=== PATIENT | female | born 1945 | race Caucasian/White ===

== ENCOUNTER 2016-09-10 21:03 | Emergency (ER) | payer MEDICARE ==
[2016-09-10] MEDS ORDERED: MORPHINE 2 MG/ML SYRINGE IVP STA ×2 (21:45→22:31)
[2016-09-10] MEDS ORDERED: ONDANSETRON 4 MG/2 ML VIAL IVP STA (21:45)
[2016-09-10] MEDS ORDERED: ONDANSETRON 4 MG/2 ML VIAL ONE (21:47)
[2016-09-10] MEDS ORDERED: MORPHINE 2 MG/ML SYRINGE ONE ×2 (21:48→22:35)
[2016-09-10] MEDS ORDERED: IOPAMIDOL-300 100 ML VIAL IVP ONE (22:23)
[2016-09-10] MEDS ORDERED: SODIUM CHLORIDE 0.9% 1,000 ML IV ONE (22:28)
[2016-09-10] MEDS ORDERED: KETOROLAC 60 MG/2 ML VIAL IVP STA (23:26)
[2016-09-10] MEDS ORDERED: KETOROLAC 30 MG/ML VIAL ONE (23:27)
[2016-09-11] MEDS ORDERED: MORPHINE 10 MG/ML VIAL IVP STA (01:40)
[2016-09-11] MEDS ORDERED: MORPHINE 2 MG/ML SYRINGE ONE (01:44)
== END 2016-09-11 02:05 | disposition home or self-care (01) ==
DX: R19.09 Other intra-abdominal and pelvic swelling, mass and lump (principal); R10.813 Right lower quadrant abdominal tenderness; I10 Essential (primary) hypertension; Z79.82 Long term (current) use of aspirin; Z90.710 Acquired absence of both cervix and uterus
CPT/HCPCS: 36415; 74177; 76830; 76856; 80053; 81001; 83690; 85025; 87086; 93976; 96374; 96375; 96376; 99284; 99285; Q9967

== ENCOUNTER 2017-07-02 09:11 | Outpatient (CLI) | payer MEDICARE | END 2017-07-02 09:12 | disposition home or self-care (01) | LOC: RT 09:11 | PROVIDERS: ATTEND Internal Medicine | DX: F17.200 Nicotine dependence, unspecified, uncomplicated (principal) | CPT/HCPCS: 94010; 94729 ==

== ENCOUNTER 2017-10-18 16:08 | Outpatient (CLI) | payer MEDICARE ==
--- NOTE | 2017-10-19 13:17 | XRAY Report ---
THORACIC SPINE, TWO VIEWS: 10/18/2017 HISTORY: Back pain. COMPARISON: 06/10/2012 chest x-ray. FINDINGS: Increasing mid-thoracic dextroscoliosis, accentuated thoracic kyphosis with mild degenerative disk space narrowing at multiple levels. No definite compression fracture or bone destruction. Included portions of the lungs are clear. Heart appears enlarged in size. IMPRESSION: DEGENERATIVE CHANGE THORACIC SPINE WITH INCREASING THORACIC DEXTROSCOLIOSIS SINCE 06/10/2012. TD: 10/19/2017 13:07
== END 2017-10-18 16:09 | disposition home or self-care (01) ==
LOC: DI.S 16:08
PROVIDERS: ATTEND Internal Medicine
DX: M41.84 Other forms of scoliosis, thoracic region (principal); M51.34 Other intervertebral disc degeneration, thoracic region
CPT/HCPCS: 72070

== ENCOUNTER 2017-12-01 13:54 | Outpatient (CLI) | payer MEDICARE ==
--- NOTE | 2017-12-01 14:47 | XRAY Report ---
Procedure Date: 12/01/2017 Accession Number: [id number] / [id number] Procedure: XRS - Hip w/Pelvis 2-3V RT CPT Code: FULL RESULT: EXAM: Hip w/Pelvis 2-3V RT DATE: 12/01/2017 2:07 PM CLINICAL HISTORY: R HIP PAIN COMPARISON: None. TECHNIQUE: 1 view of the pelvis and 1 view of the hip. FINDINGS: Bones: Normal. No fracture or bone lesion. Joints: There is near complete loss of the femoral acetabular joint spaces bilaterally. Sacroiliac joints remain congruent. Visualized lumbar spine is unremarkable. Soft Tissues: Normal. No soft tissue swelling. IMPRESSION: Advanced femoral acetabular joint space loss. RADIA
== END 2017-12-01 13:55 | disposition home or self-care (01) ==
LOC: DI.S 13:54
PROVIDERS: ATTEND Internal Medicine
DX: M16.11 Unilateral primary osteoarthritis, right hip (principal)

== ENCOUNTER 2018-02-17 07:52 | Outpatient (CLI) | payer MEDICARE ==
[2018-02-17 11:02] LABS: % IRON SATURATION 23 % (20-50); IRON 82 ug/dL (28-170); THYROID STIMULATING HORMONE 2.24 uIU/mL (0.34-5.60); TOTAL IRON BINDING CAPACITY 360 ug/dL (250-450); TRANSFERRIN 257 mg/dL (192-382)
[2018-02-17 11:04] LABS: FREE T4 (FREE THYROXINE) 0.77 ng/dL (0.58-1.64)
== END 2018-02-17 07:53 | disposition home or self-care (01) ==
LOC: LAB.F 07:52
PROVIDERS: ATTEND Internal Medicine
DX: I10 Essential (primary) hypertension (principal); E03.9 Hypothyroidism, unspecified; L81.9 Disorder of pigmentation, unspecified; L65.9 Nonscarring hair loss, unspecified
CPT/HCPCS: 36415; 83540; 84439; 84443; 84466; 84481

== ENCOUNTER 2018-08-15 08:14 | Emergency (ER) | payer MEDICARE ==
--- NOTE | 2018-08-15 10:03 | XRAY Report ---
Reason: distal 5th MC injury Procedure Date: 08/15/2018 Accession Number: [id number] / [id number] Procedure: XR - Hand 3 View RT CPT Code: FULL RESULT: EXAM: RIGHT HAND RADIOGRAPHY EXAM DATE: 08/15/2018 09:34 AM. CLINICAL HISTORY: Distal 5th MC injury. Pain and swelling COMPARISON: None. TECHNIQUE: 3 views. FINDINGS: Bones: Oblique nondisplaced right fifth metacarpal midshaft fracture Joints: Scattered degenerative changes No subluxations. Soft Tissues: Mild soft tissue swelling. IMPRESSION: Right fifth metacarpal fracture RADIA
--- NOTE | 2018-08-15 10:09 | ED Physician Documentation ---
PD HPI UPPER EXT INJURY - Stated complaint Stated Complaint: LEFT FINGER INJ - Chief complaint Chief Complaint: Trauma Ext - History obtained from History obtained from: Patient - History of Present Illness Location: Right, Hand Type of injury: Fall Where injury occurred: Home Timing - onset: Enter time (2029), Last night Timing - duration: Hours Timing - details: Abrupt onset, Still present Improved by: Rest, Immobilization Worsened by: Moving, Palpating Associated symptoms: Swelling, Discolored. No: Weakness, Numbness Contributing factors: No: Anticoagulated Similar symptoms before: Has not had sx before Recently seen: Not recently seen - Additonal information Additional information: 73-year-old female tripped and fell in her home striking her hand on a bedside table. She has swelling ecchymosis and tenderness to the area and pain anytime she moves her hand or finger. She is wearing some rings and her ring on the fifth digit will not come off now. Review of Systems Constitutional: denies: Fever Eyes: denies: Decreased vision Nose: denies: Congestion Throat: denies: Sore throat Respiratory: denies: Cough GI: denies: Vomiting PD PAST MEDICAL HISTORY - Past Medical History Past Medical History: Yes Cardiovascular: Hypertension Respiratory: None Neuro: None Endocrine/Autoimmune: None GI: Colon polyps OTOLOGIST: None : None HEENT: None Psych: None Musculoskeletal: None Derm: None - Past Surgical History Past Surgical History: Yes General: Colonoscopy Ortho: Arthroscopic surgery /OTOLOGIST: Hysterectomy, Oophrectomy - Present Medications Home Medications: Ambulatory Orders Medication Instructions Recorded Confirmed Atenolol [Tenormin] 100 mg PO 09/10/16 Hydrocodone/Acetaminophen 1 - 2 each PO Q6H PRN #14 tablet 08/15/18 [Hydrocodon-Acetaminophen 5-325] - Allergies Allergies/Adverse Reactions: Allergies Allergy/AdvReac Type Severity Reaction Status Date / Time codeine AdvReac Headache Verified 08/15/18 08:30 - Social History Does the pt smoke?: No Smoking Status: Never smoker Does the pt drink ETOH?: Yes ETOH Use: Wine, Liquor Does the pt have substance abuse?: No - Immunizations Immunizations are current?: Yes - POLST Patient has POLST: No PD ED PE NORMAL - Vitals Vital signs reviewed: Yes (hypertensive) - General General: Alert and oriented X 3, No acute distress, Well developed/nourished - HEENT HEENT: Atraumatic, PERRL, EOMI - Respiratory Respiratory: No respiratory distress - Derm Derm: Normal color, Warm and dry, No rash - Extremities Extremities: No deformity, Other (There is ecchymosis, swelling and tenderness to the right hand over the 5th metacarpal. The fingers are all mobile there is some swelling to the 5th digits and the ring is tight but moveable without obstruction to blood flow. distal n/v is intact. 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, No motor deficit, No sensory deficit, Normal speech Eye Opening: Spontaneous Motor: Obeys Commands Verbal: Oriented GCS Score: 15 - Psych Psych: Normal mood, Normal affect Results - Vitals Vitals: Vital Signs - 24 hr 08/15/18 08:28 Temperature 35.7 C L Heart Rate 60 Respiratory 14 Rate Blood Pressure 170/113 H O2 Saturation 100 Oxygen O2 Source Room air - Rads (name of study) right hand Radiology: Prelim report reviewed (Impression: Right fifth metacarpal fracture.), EMP read indepedently, See rad report Procedures - Splint (location) hand right Splint applied by: Tech Type of splint: Fiberglass, Ulnar gutter Other: Patient tolerated well, No complications, Neurovascular intact, Good alignment PD MEDICAL DECISION MAKING - ED course Complexity details: considered differential, d/w patient ED course: 73-year-old female with an injury to her right hand has a spiral fracture of the mid shaft of the metacarpal on the right hand on the fifth digit. She is placed into an ulnar gutter splint and we will have her follow-up with orthopedics. Departure - Departure Disposition: 01 Home, Self Care Clinical Impression: Closed fracture of 5th metacarpal Qualifiers: Encounter type: initial encounter Metacarpal location: shaft Fracture alignment: nondisplaced Laterality: right Qualified Code(s): S62.356A - Nondisplaced fracture of shaft of fifth metacarpal bone, right hand, initial encounter for closed fracture Condition: Stable Instructions: ED Fx Hand Closed Follow-Up: Tayler Lizarraga PA [Primary Care Provider] - [facility] [Provider Group] Prescriptions: Hydrocodone/Acetaminophen [Hydrocodon-Acetaminophen 5-325] 1 - 2 each PO Q6H PRN #14 tablet PRN Reason: pain
[2018-08-15 10:58] VITALS: BP 154/106
== END 2018-08-15 11:00 | disposition home or self-care (01) ==
LOC: ED 08:14
DX: S62.356A Nondisplaced fracture of shaft of fifth metacarpal bone, right hand, initial encounter for closed fracture (principal); W01.190A Fall on same level from slipping, tripping and stumbling with subsequent striking against furniture, initial encounter; Y92.009 Unspecified place in unspecified non-institutional (private) residence as the place of occurrence of the external cause; I10 Essential (primary) hypertension
CPT/HCPCS: 29515; 99283

== ENCOUNTER 2019-08-08 14:33 | Outpatient (CLI) | payer MEDICARE, OTHER | END 2019-08-08 14:34 | disposition home or self-care (01) | LOC: COV 14:33 | PROVIDERS: ATTEND Family Medicine | DX: R05 Cough (principal); R50.9 Fever, unspecified | CPT/HCPCS: 81599 ==

== ENCOUNTER 2020-03-29 16:39 | Outpatient (CLI) | payer MEDICARE, OTHER | END 2020-03-29 16:40 | disposition home or self-care (01) | LOC: COV 16:39 | PROVIDERS: ATTEND Family Medicine | DX: Z20.828 Contact with and (suspected) exposure to other viral communicable diseases (principal) ==

== ENCOUNTER 2020-06-24 10:41 | Outpatient (CLI) | payer MEDICARE, OTHER ==
--- NOTE | 2020-06-24 14:59 | DEXA Report ---
PROCEDURE: Dexa Spine and/or Hip INDICATIONS: OSTEOPOROSIS TECHNIQUE: Dual energy x-ray absorptiometry (DXA) was performed on a UGAME System. Regions measur ed are the AP Spine, femoral neck, and if needed forearm. COMPARISON: None. FINDINGS: Lumbar Spine: Bone Mineral Density 0.894 g/cm/cm,T score -2.4, borderline osteoporosis. Left Hip: Bone Mineral Density 0.752 g/cm/cm,T score -2.0, moderate to severe osteopenia Left Femoral Neck: Bone Mineral Density 0.727 g/cm/cm, T score -2.2, severe osteopenia (T score greater or equal to -1.0: NORMAL) (T score from -1.1 to -2.4: OSTEOPENIA) (T score less than or equal to -2.5 to: OSTEOPOROSIS) Impression: Borderline osteoporosis within the lumbar spine as well as moderate to severe osteopenia in the left hip and femoral neck. Patients with diagnosis of osteoporosis or osteopenia should have regular bone mineral density assess ment. For those eligible for Medicare, routine testing is allowed once every 2 years. Testing frequ ency can be increased for patients who have rapidly progressing disease or for those who are receivin g medical therapy to restore bone mass. Reviewed by: Nesha Fish MD on 06/24/2020 2:58 PM PST Approved by: Nesha Fish MD on 06/24/2020 2:58 PM PST Station ID: [id number]
== END 2020-06-24 10:42 | disposition home or self-care (01) ==
LOC: DI 10:41
PROVIDERS: ATTEND Nurse Practitioner Family
DX: M81.0 Age-related osteoporosis without current pathological fracture (principal)

== ENCOUNTER 2020-07-06 09:26 | Outpatient (CLI) | payer MEDICARE, OTHER ==
--- NOTE | 2020-07-06 11:20 | XRAY Report ---
PROCEDURE: Chest 3 View X-Ray INDICATIONS: CHRONIC OBSTRUCTIVE LUNG DISEASE TECHNIQUE: 2 view(s) of the chest. COMPARISON: None. FINDINGS: Surgical changes and devices: None. Lungs and pleura: No pleural effusions or pneumothorax. Lungs are clear, hyperexpanded. Mediastinum: Mediastinal contours are normal. Heart size is normal. Bones and chest wall: Age-appropriate degenerative changes are seen. There is accentuated thoracic kyphosis. No suspicious bony abnormalities. Soft tissues appear unremarkable. IMPRESSION: Hyperexpanded lungs are seen, without an acute cardiopulmonary abnormality seen. Reviewed by: Erik Rivers MD on 07/06/2020 10:18 AM [facility] Approved by: Erik Rivers MD on 07/06/2020 10:18 AM [facility] Station ID: [id number]
== END 2020-07-06 09:27 | disposition home or self-care (01) ==
LOC: DI.S 09:26
PROVIDERS: ATTEND Nurse Practitioner Family
DX: J41.0 Simple chronic bronchitis (principal)

== ENCOUNTER 2020-08-05 09:36 | Outpatient (CLI) | payer MEDICARE, OTHER ==
[2020-08-05 14:09] LABS: BASOPHILS # (AUTO) 0.1 10^3/uL (0.0-0.1); BASOPHILS % (AUTO) 1.3 %; EOSINOPHILS # (AUTO) 0.2 10^3/uL (0.0-0.7); EOSINOPHILS % (AUTO) 3.3 %; HCT - HEMATOCRIT 42.5 % (37.0-47.0); HGB - HEMOGLOBIN 13.6 g/dL (12.0-16.0); LYMPHOCYTES # (AUTO) 1.7 10^3/uL (1.5-3.5); LYMPHOCYTES % (AUTO) 30.6 %; MEAN CORPUSCULAR HEMOGLOBIN 31.9 pg (27.0-31.0); MEAN CORPUSCULAR VOLUME 99.5 fL (81.0-99.0); MEAN PLATELET VOLUME 10.5 fL (7.9-10.8); MONOCYTES # (AUTO) 0.4 10^3/uL (0.0-1.0); MONOCYTES % (AUTO) 6.9 %; NEUTROPHILS # (AUTO) 3.1 10^3/uL (1.5-6.6); NEUTROPHILS % (AUTO) 57.5 %; PLT - PLATELET COUNT 256 10^3/uL (130-450); RED BLOOD COUNT 4.27 10^6/uL (4.20-5.40); RED CELL DISTRIBUTION WIDTH 14.6 % (12.0-15.0); WHITE BLOOD COUNT 5.4 x10^3/uL (4.8-10.8)
[2020-08-05 15:09] LABS: ALBUMIN/GLOBULIN RATIO 1.5 (1.0-2.2); CALCIUM 9.2 mg/dL (8.5-10.3); CREATININE 1.2 mg/dL (0.4-1.0); TOTAL PROTEIN 6.7 g/dL (6.7-8.2)
== END 2020-08-05 09:37 | disposition home or self-care (01) ==
LOC: LAB.S 09:36
PROVIDERS: ATTEND Internal Medicine
DX: I10 Essential (primary) hypertension (principal)
CPT/HCPCS: 36415; 80053; 85025

== ENCOUNTER 2021-02-17 07:51 | Outpatient (CLI) | payer MEDICARE, OTHER ==
[2021-02-17 14:39] LABS: BASOPHILS # (AUTO) 0.1 10^3/uL (0.0-0.1); BASOPHILS % (AUTO) 1.3 %; EOSINOPHILS # (AUTO) 0.2 10^3/uL (0.0-0.7); EOSINOPHILS % (AUTO) 3.4 %; HCT - HEMATOCRIT 45.1 % (37.0-47.0); HGB - HEMOGLOBIN 14.4 g/dL (12.0-16.0); LYMPHOCYTES # (AUTO) 2.2 10^3/uL (1.5-3.5); MEAN CORPUSCULAR HEMOGLOBIN 31.4 pg (27.0-31.0); MEAN CORPUSCULAR HGB CONC 31.9 g/dL (32.0-36.0); MEAN CORPUSCULAR VOLUME 98.3 fL (81.0-99.0); MEAN PLATELET VOLUME 10.7 fL (7.9-10.8); MONOCYTES # (AUTO) 0.4 10^3/uL (0.0-1.0); NEUTROPHILS # (AUTO) 2.4 10^3/uL (1.5-6.6); NEUTROPHILS % (AUTO) 46.1 %; PLT - PLATELET COUNT 225 10^3/uL (130-450); RED BLOOD COUNT 4.59 10^6/uL (4.20-5.40); RED CELL DISTRIBUTION WIDTH 13.2 % (12.0-15.0); WHITE BLOOD COUNT 5.3 x10^3/uL (4.8-10.8)
[2021-02-17 15:05] LABS: ALBUMIN 3.8 g/dL (3.2-5.5); ALBUMIN/GLOBULIN RATIO 1.4 (1.0-2.2); BILIRUBIN,TOTAL 0.9 mg/dL (0.2-1.0); CREATININE 1.1 mg/dL (0.4-1.0); POTASSIUM 4.6 mmol/L (3.5-5.0); TOTAL PROTEIN 6.6 g/dL (6.7-8.2)
== END 2021-02-17 07:52 | disposition home or self-care (01) ==
LOC: LAB.S 07:51
PROVIDERS: ATTEND Internal Medicine
DX: N18.9 Chronic kidney disease, unspecified (principal)
CPT/HCPCS: 36415; 80053; 85025

== ENCOUNTER 2021-03-20 08:36 | Outpatient (CLI) | payer MEDICARE, OTHER ==
--- NOTE | 2021-03-20 09:14 | XRAY Report ---
PROCEDURE: Shoulder 3 View RT INDICATIONS: PAIN OF RIGHT SHOULDER JOINT TECHNIQUE: 3 views of the shoulder were acquired. COMPARISON: None. FINDINGS: Bones: No fractures or dislocations. No suspicious bony lesions. Visualized ribs appear intact. J oint space narrowing and periarticular osteophyte formation at the acromioclavicular and glenohumeral joints. Soft tissues: No suspicious soft tissue calcifications. IMPRESSION: Osteoarthritis. No acute fracture. No osseous lesion. If symptoms and/or clinical suspic ion for pathology continue, further assessment with repeat plain films, or advanced imaging (e.g., CT , MRI, or bone scan) is recommended for further assessment. Reviewed by: Selina Mcmahon MD on 03/20/2021 9:13 AM PDT Approved by: Selina Mcmahon MD on 03/20/2021 9:13 AM PDT Station ID: [id number]
== END 2021-03-20 08:37 | disposition home or self-care (01) ==
LOC: DI.S 08:36
PROVIDERS: ATTEND Nurse Practitioner Family
DX: M19.011 Primary osteoarthritis, right shoulder (principal)

== ENCOUNTER 2021-04-24 08:00 | Outpatient (CLI) | payer MEDICARE, OTHER ==
[2021-04-24 19:52] LABS: BILIRUBIN,URINE NEGATIVE (NEGATIVE); GLUCOSE, URINE (UA) NEGATIVE (NEGATIVE); KETONES,URINE (UA) NEGATIVE (NEGATIVE); LEUKOCYTE ESTERASE, URINE NEGATIVE (NEGATIVE); NITRITE,URINE NEGATIVE (NEGATIVE); OCCULT BLOOD,URINE SMALL (NEGATIVE); PROTEIN,URINE NEGATIVE (NEGATIVE); UROBILINOGEN,URINE 0.2 (NORMAL) E.U./dL (NORMAL)
[2021-04-24 20:02] LABS: CLARITY,URINE CLEAR (CLEAR)
[2021-04-24 20:13] LABS: BACTERIA,URINE Rare /HPF (None Seen); RBC,URINE 0-5 /HPF (0-5); SQUAMOUS EPITHELIAL CELL,UR RARE Squamous (<= Few); WBC,URINE 0-3 /HPF (0-5)
== END 2021-04-24 23:59 | disposition home or self-care (01) ==
LOC: LAB.S 08:00
PROVIDERS: ATTEND Physician Assistant Medical
DX: R31.9 Hematuria, unspecified (principal)
CPT/HCPCS: 81001; 87086

== ENCOUNTER 2021-05-08 12:23 | Emergency (ER) | payer MEDICARE, OTHER ==
--- NOTE | 2021-05-08 12:53 | ED Physician Documentation ---
PD HPI CHEST PAIN - Stated complaint Stated Complaint: RAPID PULSE - Chief complaint Chief Complaint: Cardiac - History obtained from History obtained from: Patient - Additional information Additional information: For the last year or so this patient has infrequent episodes of feeling like her heart is racing and elevated blood pressure associated with pressure of the anterior neck and upper sternum radiating to the throat. No chest pain or shortness of breath. It last about an hour or so at a time and seems to get better if she drinks a lot of water. It happens infrequently and there does not seem to be any specific trigger or pattern to it. When she is in her usual state of health her blood pressure is well controlled on atenolol and she is otherwise very healthy. She turned in a Holter monitor about a week and a half ago for this and has not heard results yet. She had a particularly bad episode last night triggering her visit today. Now she is asymptomatic. When this does happen her blood pressure will go up to 220/120 or so but her pulse rate on her apple watch is normal. Review of Systems Ten Systems: 10 systems reviewed and negative Constitutional: denies: Fever, Chills, Myalgias, Fatigue Cardiac: reports: Palpitations. 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: Hysterectomy, Oophrectomy - Present Medications Home Medications: Ambulatory Orders Medication Instructions Recorded Confirmed Atenolol [Tenormin] 100 mg PO 09/10/16 Hydrocodone/Acetaminophen 1 - 2 each PO Q6H PRN #14 tablet 08/15/18 [Hydrocodon-Acetaminophen 5-325] - Allergies Allergies/Adverse Reactions: Allergies Allergy/AdvReac Type Severity Reaction Status Date / Time codeine AdvReac Headache Verified 08/15/18 08:30 - Social History Does the pt smoke?: No Smoking Status: Never smoker Does the pt drink ETOH?: Yes Does the pt have substance abuse?: No - Immunizations Immunizations are current?: Yes - POLST Patient has POLST: No PD ED PE NORMAL - Vitals Vital signs reviewed: Yes - General General: Alert and oriented X 3, No acute distress - HEENT HEENT: PERRL, EOMI - Neck Neck: Supple, no meningeal sign, No bony TTP - Cardiac Cardiac: RRR, No murmur - Respiratory Respiratory: No respiratory distress, Clear bilaterally - Back Back: No CVA TTP, No spinal TTP - Derm Derm: Normal color, Warm and dry - Extremities Extremities: No edema, No calf tenderness / cord - Neuro Neuro: Alert and oriented X 3, Normal speech Results - Vitals Vitals: Vital Signs - 24 hr 05/08/21 05/08/21 05/08/21 12:30 12:51 13:51 Temperature 36.5 C 36.5 C Heart Rate 63 62 60 Respiratory 16 16 16 Rate Blood Pressure 150/98 H 133/90 H 128/88 H O2 Saturation 99 96 96 Oxygen O2 Source Room air - Labs Labs: Laboratory Tests 05/08/21 05/08/21 05/08/21 13:00 13:00 13:00 WBC 7.5 RBC 4.58 Hgb 14.6 Hct 43.2 MCV 94.3 MCH 31.9 H MCHC 33.8 RDW 13.8 Plt Count 200 MPV 10.3 Neut # (Auto) 4.3 Lymph # (Auto) 2.2 [place] # (Auto) 0.6 Eos # (Auto) 0.2 Baso # (Auto) 0.1 Absolute Nucleated RBC 0.00 Nucleated RBC % 0.0 Sodium 135 Potassium 3.7 Chloride 103 Carbon Dioxide 25 Anion Gap 7.0 BUN 22 H Creatinine 1.1 H Estimated GFR (MDRD) 49 L Glucose 91 Calcium 9.1 Magnesium 1.9 TSH 2.92 PD MEDICAL DECISION MAKING - ED course ED course: 76-year-old woman with episodic palpitations and hypertension, happening only infrequently has already had a Holter monitor for same there is no clear pattern to it. Her work-up today is unremarkable. I did email her physician wondering if she should have a pheochromocytoma work-up. Also she needs to follow-up for the results of the Holter monitor. After discussion with the patient though I went ahead and ordered 24-hour urine metanephrines and 24-hour urine vanillylmandelic acid. She understands the need to follow-up with her primary care physician for this. And she was given a urine collection kit from the lab to collect a 24-hour urine. Departure - Departure Disposition: 01 Home, Self Care Clinical Impression: Transient hypertension, Palpitations Condition: Good Record reviewed to determine appropriate education?: Yes Instructions: ED Palpitations Comments: No abnormal findings today as you expected. I have emailed Dr. Parnell to see if he wants to think about working you up for pheochromocytoma which, as discussed, we can start out of the emergency department given the specifics of the testing needed. Also try to get the results of your Holter monitoring although you were asymptomatic during your Holter monitoring, so may need to follow-up for more extended monitoring. Return if worse. Discharge Date/Time: 05/08/21 13:51
[2021-05-08 13:04] LABS: BASOPHILS # (AUTO) 0.1 10^3/uL (0.0-0.1); BASOPHILS % (AUTO) 1.2 %; EOSINOPHILS # (AUTO) 0.2 10^3/uL (0.0-0.7); EOSINOPHILS % (AUTO) 2.7 %; HCT - HEMATOCRIT 43.2 % (37.0-47.0); HGB - HEMOGLOBIN 14.6 g/dL (12.0-16.0); LYMPHOCYTES # (AUTO) 2.2 10^3/uL (1.5-3.5); LYMPHOCYTES % (AUTO) 29.6 %; MEAN CORPUSCULAR HEMOGLOBIN 31.9 pg (27.0-31.0); MEAN CORPUSCULAR HGB CONC 33.8 g/dL (32.0-36.0); MEAN CORPUSCULAR VOLUME 94.3 fL (81.0-99.0); MEAN PLATELET VOLUME 10.3 fL (7.9-10.8); MONOCYTES # (AUTO) 0.6 10^3/uL (0.0-1.0); MONOCYTES % (AUTO) 8.3 %; NEUTROPHILS # (AUTO) 4.3 10^3/uL (1.5-6.6); NEUTROPHILS % (AUTO) 57.8 %; PLT - PLATELET COUNT 200 10^3/uL (130-450); RED BLOOD COUNT 4.58 10^6/uL (4.20-5.40); RED CELL DISTRIBUTION WIDTH 13.8 % (12.0-15.0); WHITE BLOOD COUNT 7.5 x10^3/uL (4.8-10.8)
[2021-05-08 13:12] LABS: CALCIUM 9.1 mg/dL (8.5-10.3); CREATININE 1.1 mg/dL (0.4-1.0); MAGNESIUM 1.9 mg/dL (1.7-2.8); POTASSIUM 3.7 mmol/L (3.5-5.0)
[2021-05-08 13:53] VITALS: BP 128/88
== END 2021-05-08 13:51 | disposition home or self-care (01) ==
LOC: ED 12:23
DX: I10 Essential (primary) hypertension (principal); R00.2 Palpitations
CPT/HCPCS: 36415; 80048; 83735; 84443; 85025; 93005; 99283; 99284

== ENCOUNTER 2021-10-16 13:09 | Outpatient (CLI) | payer MEDICARE, OTHER | END 2021-10-16 13:10 | disposition home or self-care (01) | LOC: DI 13:09 | PROVIDERS: ATTEND Internal Medicine Cardiovascular Disease | DX: I31.3 Pericardial effusion (noninflammatory) (principal); I48.0 Paroxysmal atrial fibrillation; R94.31 Abnormal electrocardiogram [ECG] [EKG] | CPT/HCPCS: 93306 ==

== ENCOUNTER 2021-11-06 08:49 | Outpatient (CLI) | payer MEDICARE, OTHER ==
--- NOTE | 2021-11-06 09:35 | CARDIAC PROCEDURE NOTE ---
Stress Test Report Service Date: 11/06/21 Service Time: 09:00 Ordering Provider: Unruly García MD Indication for Test: Assess for inducible ischemia in patient with recent diagnosis of atrial fibrillation and increased CAD risk factor profile. Significant Medical History: -Alysha Diez is referred for a treadmill stress myocardial perfusion imaging study, as part of an evaluation for paroxysmal atrial fibrillation episodes over the past year, in the setting of treatment for many years with atenolol for hypertension. She had two rather severe episodes last fall, lasting for "a couple of hours" and associated with upper chest and throat tightness, shortness of breath and dramatic increase in blood pressure. Since that time the episodes have decreased in frequency, intensity and duration, now averaging about 1 occurrence per month. She feels that dehydration can be a trigger for her episodes. - She was evaluated by Dr. García in mid-September, who increased her atenolol dose from 100 to 150 mg daily and initiated Xarelto and rosuvastatin. She continues having episodes intermittently, which she can detect with her iWatch. She reports brief episodes occurring most recently on October 23 and . She has not had recurrence of the severe concomitant symptoms that were initially associated with her A. fib episodes and she tells me that her exertional tolerance remains intact. She walks nearly a mile daily including some hills and reports limitation only when she has an active A. fib episode while walking. She has not experienced exertional chest discomfort nor significant dyspnea otherwise. Cardiac Risk Factors: Positive for hypertension, significant tobacco smoking history (50 yrs on and off, as much as 1/2 ppd, quit 2015), possibly for hyperlipidemia; no history of diabetes. Both father and paternal grandfather had stroke in their later years (type unknown) with no known family history of CAD. Type of Stress Test: ETT with Myocardial Perfusion Imaging Procedure: -Exercise Treadmill Test- After signing informed consent, the patient underwent rest SPECT imaging and then performed treadmill exercise using a [place] protocol. The patient exercised for 4 minutes 45 seconds and achieved a peak heart rate of 154 (105 percent predicted maximum heart rate for age), and an estimated workload of 6.7 METS. The test was terminated primarily due to shortness of breath, with fatigue. Resting heart rate: 56 Peak heart rate: 154 Normal response to exercise. Resting BP: 187/98 Peak BP: 230/128 Hypertensive at rest, with physiologic increase in systolic BP and abnormal marked increase in diastolic BP with exercise. Note that patient had not taken her usual 150 mg atenolol dose for ~60 hours prior to the study. Rhythm during exercise: Sinus rhythm throughout. Symptoms: She denied experiencing ANY chest discomfort whatsoever; however, upon entering the Recovery phase off the treadmill she suddenly developed severe and throbbing lower back pain that she described as radiating from the lower right lumbar region to the center of her back. Her pulses were intact peripherally. She had rather rapid resolution of the pain over the next 5 minutes and was able to stand thereafter without recurrence. EKG at rest showed normal sinus rhythm, with left atrial enlargement. EKG at peak stress showed horizontal ST depression of >1.3 mm in leads II, aVF, V5 & V6, meeting EKG diagnostic criteria for ischemia. In Recovery HR rapidly/normally decreased and BP had returned to baseline at 7:00. Nuclear imaging was performed at rest and with stress and interpretation will be reported separately. IKemal MD, was present throughout this treadmill stress study and supervised it in its entirety. Summary: 1) Exercise tolerance modestly reduced for age and sex as evidenced by RUTHANN of 10%. 2) Abnormal resting EKG. 3) Adequate level of exercise was achieved on this treadmill stress test. 4) Hypertensive at rest with physiologic increase of systolic and abnormal increase of diastolic BP in response to exercise. 5) Ischemic changes by EKG criteria were seen at peak stress. 6) Analysis of gated nuclear images reveals normal left ventricular size and systolic function; SPECT analysis reveals a small, primarily fixed defect in the atrioventricular groove region of the anterior septum with supine imaging, that is not seen with stress prone imaging. The latter data suggests the apparent defect is likely due to breast tissue attenuation artifact and there is no clear evidence of prior infarct or inducible ischemia. See separate report for more detail. CONCLUSIONS: 1) Overall reassuring treadmill stress MPS results, with no ischemic symptoms during exercise. 2) SPECT results suggest ST depression with exercise is likely a false positive result. 3) Patient is encouraged to maintain her physical activity level and continue to monitor the adequacy of her blood pressure control.
[2021-11-06] MEDS ORDERED: atenoloL 25 MG TABLET PO ONE (12:30)
--- NOTE | 2021-11-06 17:52 | Nuclear Medicine Report ---
PROCEDURE: Rest and exercise myocardial perfusion SPECT with gated imaging and ejection fraction INDICATIONS: PAROXYSMAL ATRAIL FIB RADIOPHARMACEUTICAL: 12.7 mCi Tc-99m Myoview IV at rest and 34.1 mCi Tc-99m Myoview IV at peak exerc ise. [id number] was performed. TECHNIQUE: Radiopharmaceutical was injected at peak stress test, and also at rest. SPECT images wer e obtained. SPECT myocardial perfusion images were displayed in short axis, horizontal long axis, an d vertical long axis views. Gated images were reviewed using Auto[employer] software. COMPARISON: The prior examination dated 11/22/2019 has no images or report, therefore, cannot be co mpared with the current exam. FINDINGS: Raw data: There is good myocardial labeling by radiotracer. No significant motion artifacts. Lung- to-heart ratio is 0.28 (normal is less than 0.46 for tetrafosmin tracer). Left ventricle function: Gated images demonstrate normal left ventricle wall thickening. No segment al wall motion abnormality. No transient ischemic dilation; TID is 0.71 (normal less than 1.30). Th e left ventricle resting end-diastolic volume is normal. Left ventricle stress ejection fraction is >70%; normal values are above 45%. Myocardial perfusion: There is a small, mild fixed defect in the anterior septum near the atrioventr icular groove, most likely caused by attenuation artifact. There is otherwise normal distribution of activity in the left and right ventricular myocardium. IMPRESSION: 1. Probably normal myocardial perfusion images. No convincing evidence for myocardial ischemia or inf arct. 2. Normal left ventricular volume and systolic function. 3. Please correlate with stress EKG result. PQRS ATTESTATIONS: Measure 322 - Is this imaging test primarily performed on a low-risk surgery patient for preoperative evaluation within 30 days preceding their low-risk non-cardiac surgery? Low-risk surgery is defined as cardiac or myocardial infarction less than 1%, including (but not limited to) endoscopic pr ocedures, superficial procedures, cataract surgery, and excisional breast surgery: Answer: No Measure 323 - Is this imaging test performed primarily for the monitoring of an asymptomatic patient who had percutaneous coronary intervention on the visit date or within 2 years of the visit date? An swer: No Measure 324 - Is this imaging test performed primarily for the initial detection and risk assessment on an asymptomatic, low coronary heart disease patient? Low CHD risk definition = clinicians should consider the maximum number of available patient factors used to estimate risk based on [place] (A TP III criteria), typically age, gender, diabetes, smoking status, and use of blood pressure medicati on, and integrate age appropriate estimates for missing elements, such as LDL or standard blood press ure. Answer: No Reviewed by: Amalia Coy MD on 11/06/2021 5:51 PM PDT Approved by: Amalia Coy MD on 11/06/2021 5:51 PM PDT Station ID: [id number]
== END 2021-11-06 08:50 | disposition home or self-care (01) ==
LOC: DI 08:49
PROVIDERS: ATTEND Internal Medicine Cardiovascular Disease
DX: I48.0 Paroxysmal atrial fibrillation (principal); R94.31 Abnormal electrocardiogram [ECG] [EKG]; I10 Essential (primary) hypertension; Z87.891 Personal history of nicotine dependence
CPT/HCPCS: 78452; 93017; A9500; 93016; 93018

== ENCOUNTER 2022-07-15 11:21 | Outpatient (CLI) | payer MEDICARE, OTHER ==
--- NOTE | 2022-07-15 12:40 | XRAY Report ---
PROCEDURE: Wrist 4 View RT INDICATIONS: RIGHT WRIST PAIN TECHNIQUE: 3 views of the wrist were acquired. COMPARISON: None FINDINGS: Bones: Mild degenerative changes. No fractures or dislocations. No suspicious bony lesions. Scaphoid view: Normal Soft tissues: No suspicious soft tissue calcifications. IMPRESSION: Mild degenerative changes. No acute abnormality of the right wrist. Reviewed by: Caleb Joe on 07/15/2022 12:39 PM [facility] Approved by: Caleb Joe on 07/15/2022 12:39 PM [facility] Station ID: [id number]
== END 2022-07-15 11:24 | disposition home or self-care (01) ==
LOC: DI.S 11:21
PROVIDERS: ATTEND Nurse Practitioner
DX: M19.031 Primary osteoarthritis, right wrist (principal)

== ENCOUNTER 2022-08-19 15:06 | Outpatient (CLI) | payer MEDICARE ==
--- NOTE | 2022-08-19 16:44 | DEXA Report ---
PROCEDURE: Dexa Spine and/or Hip INDICATIONS: OSTEOPOROSIS TECHNIQUE: Dual energy x-ray absorptiometry (DXA) was performed on a Lab42 System. Regions measur ed are the AP Spine, femoral neck, and if needed forearm. COMPARISON: 06/24/2020 FINDINGS: Lumbar Spine: Bone Mineral Density 0.931 g/cm/cm,T score -2.1, statistically increased from prior. Left Femoral Neck: Bone Mineral Density 0.705 g/cm/cm, T score -2.4, osteopenia. Left Hip: Bone Mineral Density 0.768 g/cm/cm,T score -1.9, no statistical interval change. (T score greater or equal to -1.0: NORMAL) (T score from -1.1 to -2.4: OSTEOPENIA) (T score less than or equal to -2.5 to: OSTEOPOROSIS) Impression: Osteopenia. Statistically increased bone mineral density of the lumbar spine. No significant interval change of the left hip. Patients with diagnosis of osteoporosis or osteopenia should have regular bone mineral density assess ment. For those eligible for Medicare, routine testing is allowed once every 2 years. Testing frequ ency can be increased for patients who have rapidly progressing disease or for those who are receivin g medical therapy to restore bone mass. Reviewed by: Vinnie Rosario on 08/19/2022 4:43 PM PDT Approved by: Vinnie Rosario on 08/19/2022 4:43 PM PDT Station ID: [id number]
== END 2022-08-19 15:07 | disposition home or self-care (01) ==
LOC: DI 15:06
PROVIDERS: ATTEND Nurse Practitioner
DX: M85.88 Other specified disorders of bone density and structure, other site (principal)

== ENCOUNTER 2023-08-02 12:30 | Outpatient (CLI) | payer MEDICARE ==
[2023-08-02 12:43] LABS: BASOPHILS # (AUTO) 0.1 10^3/uL (0.0-0.1); BASOPHILS % (AUTO) 1.1 %; EOSINOPHILS # (AUTO) 0.1 10^3/uL (0.0-0.7); HCT - HEMATOCRIT 43.8 % (37.0-47.0); HGB - HEMOGLOBIN 14.1 g/dL (12.0-16.0); LYMPHOCYTES # (AUTO) 2.5 10^3/uL (1.5-3.5); LYMPHOCYTES % (AUTO) 36.1 %; MEAN CORPUSCULAR HEMOGLOBIN 30.5 pg (27.0-31.0); MEAN CORPUSCULAR HGB CONC 32.2 g/dL (32.0-36.0); MEAN CORPUSCULAR VOLUME 94.8 fL (81.0-99.0); MEAN PLATELET VOLUME 10.1 fL (7.9-10.8); MONOCYTES # (AUTO) 0.5 10^3/uL (0.0-1.0); MONOCYTES % (AUTO) 7.4 %; NEUTROPHILS # (AUTO) 3.7 10^3/uL (1.5-6.6); NEUTROPHILS % (AUTO) 53.1 %; PLT - PLATELET COUNT 198 10^3/uL (130-450); RED BLOOD COUNT 4.62 10^6/uL (4.20-5.40); RED CELL DISTRIBUTION WIDTH 13.6 % (12.0-15.0)
[2023-08-02 12:59] LABS: CREATININE 1.2 mg/dL (0.6-1.3)
== END 2023-08-02 12:31 | disposition home or self-care (01) ==
LOC: LAB 12:30
PROVIDERS: ATTEND Internal Medicine
DX: I48.0 Paroxysmal atrial fibrillation (principal); Z51.81 Encounter for therapeutic drug level monitoring
CPT/HCPCS: 36415; 82565; 84450; 84460; 85025

== ENCOUNTER 2023-12-18 10:43 | Emergency (ER) | payer MEDICARE ==
[2023-12-18 11:46] LABS: BASOPHILS # (AUTO) 0.1 10^3/uL (0.0-0.1); BASOPHILS % (AUTO) 0.9 %; EOSINOPHILS # (AUTO) 0.1 10^3/uL (0.0-0.7); EOSINOPHILS % (AUTO) 1.8 %; HCT - HEMATOCRIT 43.2 % (37.0-47.0); HGB - HEMOGLOBIN 14.3 g/dL (12.0-16.0); LYMPHOCYTES # (AUTO) 2.2 10^3/uL (1.5-3.5); LYMPHOCYTES % (AUTO) 33.7 %; MEAN CORPUSCULAR HEMOGLOBIN 31.1 pg (27.0-31.0); MEAN CORPUSCULAR HGB CONC 33.1 g/dL (32.0-36.0); MEAN CORPUSCULAR VOLUME 93.9 fL (81.0-99.0); MONOCYTES # (AUTO) 0.4 10^3/uL (0.0-1.0); MONOCYTES % (AUTO) 6.6 %; NEUTROPHILS # (AUTO) 3.7 10^3/uL (1.5-6.6); NEUTROPHILS % (AUTO) 56.7 %; PLT - PLATELET COUNT 214 10^3/uL (130-450); RED CELL DISTRIBUTION WIDTH 14.6 % (12.0-15.0); WHITE BLOOD COUNT 6.5 x10^3/uL (4.8-10.8)
--- NOTE | 2023-12-18 11:58 | ED Physician Documentation ---
History of Present Illness - Stated complaint Stated Complaint: SLOW HR, FOGGY BRAIN,WEAK - Chief complaint Chief Complaint: Cardiac - History obtained from History obtained from: Patient - Additonal information Additional information: 78-year-old woman with history of atrial fibrillation started flecainide at a dose of 100 mg twice daily about 6 weeks ago. Her heart rate dropped and she felt weak and dizzy. Of note she also takes atenolol at a dose of 100 mg a day but that has not changed in quite some time. So she dropped the dose of flecainide down to 50 mg twice a day. After that she actually felt better and subsequently talked with her sap pi developer who recommended that she increase the dose back to 100 mg twice a day. That happened about 5 days ago. She started to feel a low heart rate and weak and dizzy again and stopped her flecainide a couple of days ago. She still feels weak and dizzy. She denies chest pain or trouble breathing. She has no heart problems other than A-fib. She does have stage IIIa CKD. 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 : None HEENT: None Psych: None Musculoskeletal: None Derm: None - Past Surgical History Past Surgical History: Yes General: Colonoscopy Ortho: Arthroscopic surgery /PRAWN TRAWLER HAND: Hysterectomy, Oophrectomy - Present Medications Home Medications: Ambulatory Orders Medication Instructions Recorded Confirmed atenoloL [Tenormin] 100 mg PO 09/10/16 Hydrocodone/Acetaminophen 1 - 2 each PO Q6H PRN #14 tablet 08/15/18 [Hydrocodon-Acetaminophen 5-325] hydrALAZINE [Apresoline] 25 mg PO QID #120 tablet 12/18/23 - Allergies Allergies/Adverse Reactions: Allergies Allergy/AdvReac Type Severity Reaction Status Date / Time codeine AdvReac Headache Verified 12/18/23 11:03 - Social History Does the pt smoke?: No Smoking Status: Never smoker Does the pt drink ETOH?: Yes Does the pt have substance abuse?: No - Immunizations Immunizations are current?: Yes - POLST Patient has POLST: No PD ED PE NORMAL - Vitals Vital signs reviewed: Yes - General General: Alert and oriented X 3, No acute distress - Cardiac Cardiac: Other (Modest bradycardia without murmur, regular) - Respiratory Respiratory: No respiratory distress, Clear bilaterally - Abdomen Abdomen: Normal bowel sounds, Soft, Non tender - Extremities Extremities: No edema, No calf tenderness / cord - Neuro Neuro: Alert and oriented X 3, Normal speech Results - Vitals Vitals: Vital Signs - 24 hr 12/18/23 12/18/23 12/18/23 10:57 11:09 12:12 Temperature 36.4 C L Heart Rate 47 L 44 L 48 L Respiratory 20 11 L 16 Rate Blood Pressure 196/109 H 192/101 H 207/99 H O2 Saturation 98 96 100 12/18/23 12/18/23 12/18/23 12:21 12:30 12:35 Temperature Heart Rate 47 L 49 L 59 L Respiratory 17 16 13 Rate Blood Pressure 189/84 H 179/83 H 175/90 H O2 Saturation 97 99 99 12/18/23 12/18/23 12/18/23 12:40 12:51 14:00 Temperature Heart Rate 57 L 54 L 58 L Respiratory 19 14 20 Rate Blood Pressure 174/90 H 182/95 H 144/77 H O2 Saturation 100 99 100 Oxygen O2 Source Room air - EKG (time done) 1104 EKG releavant findings:: EKG personally interpreted by author of this note. Relevant findings are: Rate: Rate (enter#) (47) Rhythm: Sinus bradycardia, LAE [place]: Normal Intervals: Normal PA QRS: Normal Ischemia: Normal ST segments - Labs Labs: Laboratory Tests 12/18/23 12/18/23 11:29 11:29 WBC 6.5 RBC 4.60 Hgb 14.3 Hct 43.2 MCV 93.9 MCH 31.1 H MCHC 33.1 RDW 14.6 Plt Count 214 MPV 11.0 H Neut # (Auto) 3.7 Lymph # (Auto) 2.2 [place] # (Auto) 0.4 Eos # (Auto) 0.1 Baso # (Auto) 0.1 Absolute Nucleated RBC 0.00 Nucleated RBC % 0.0 Sodium 135 Potassium 3.7 Chloride 100 L Carbon Dioxide 29 Anion Gap 6.0 BUN 24 H Creatinine 1.2 Estimated GFR (MDRD) 44 L Glucose 96 Calcium 10.0 Magnesium 2.2 Total Bilirubin 1.0 AST 23 ALT 25 Alkaline Phosphatase 58 Troponin I High Sens Cancelled Total Protein 6.3 L Albumin 4.3 Globulin 2.0 L Albumin/Globulin Ratio 2.2 Lipase 55 PD Medical Decision Making - ED course ED course: She presents with weak and dizziness without chest pain or trouble breathing. No ischemic symptoms. She has had bradycardia which she thinks is related to the flecainide and she is already kind of done her own study by stopping it and she felt better and then restarting it and feeling worse again. She appears well with an otherwise normal exam. Will give her some IV fluids and potentially some hydralazine for her elevated blood pressure which may cause a reflex to increase her heart rate which would be useful. After the first dose of hydralazine her heart rate did come up into the mid 50s but then kind of trended back down into the high 40s again. I will repeat it. She is feeling somewhat better but not completely resolved. Workup in the emergency department demonstrates an unremarkable CBC. She has mild kidney disease on CMP with normal electrolytes. Troponin was ordered in triage but I canceled it as a so no need for it as her symptoms are not at all reminiscent of any ischemic heart issue. She was ambulatory without issue here without significant dizziness and wanted to go home. Departure - Departure Disposition: Home, Self Care Clinical Impression: Bradycardia Condition: Good Record reviewed to determine appropriate education?: Yes Instructions: ED Bradycardia Prescriptions: hydrALAZINE [Apresoline] 25 mg PO QID #120 tablet Comments: You were seen today for low heart rates which given your experience may have been related to the new flecainide. Atenolol will also cause a low heart rate, but less likely that was related as you have been on that for quite some time. Your lab work was unremarkable save for mildly low renal function (creatinine 1.2, GFR 44, all stable from priors). You are feeling better after some IV fluids and hydralazine. Hydralazine is a blood pressure medication that because of the weight works can cause your heart rate to go up. Since your blood pressure was high and your heart rate was low we are "killing 2 birds with 1 stone with it." I sent a prescription for it to [facility] in [place] and you can take it up to 4 times a day if you are systolic blood pressure (the top number) is over 160. Would recommend you follow-up with your sap pi developer, calling Wednesday for next available appointment. Return for new or worsening symptoms. I would continue to hold the flecainide, and you might even consider cutting your atenolol in half as well. Forms: PCP List Discharge Date/Time: 12/18/23 14:11
[2023-12-18 12:07] LABS: ALBUMIN 4.3 g/dL (3.2-5.5); ALBUMIN/GLOBULIN RATIO 2.2 (1.0-2.2); CREATININE 1.2 mg/dL (0.6-1.3); MAGNESIUM 2.2 mg/dL (1.7-2.3); POTASSIUM 3.7 mmol/L (3.5-4.5); TOTAL PROTEIN 6.3 g/dL (6.4-8.9)
[2023-12-18] MEDS: hydrALAZINE INJ 20 MG/ML VIAL IVP STA ×2 (12:13→13:40)
[2023-12-18] MEDS: SODIUM CHLORIDE 0.9% 1,000 ML IV STA (12:18)
--- NOTE | 2023-12-18 12:40 | XRAY Report ---
PROCEDURE: Chest 1V INDICATIONS: Chest pain TECHNIQUE: One view of the chest was acquired. COMPARISON: 07/06/2020. FINDINGS: Surgical changes and devices: None. Lungs and pleura: No pleural effusions or pneumothorax. Lungs are clear. Mediastinum: Mediastinal contours appear normal. Heart size is mildly prominent. Bones and chest wall: No suspicious bony lesions. Overlying soft tissues appear unremarkable. IMPRESSION: No acute cardiopulmonary process. Reviewed by: Timbo Butcher MD on 12/18/2023 12:39 PM PDT Approved by: Timbo Butcher MD on 12/18/2023 12:39 PM PDT Station ID: [id number]
[2023-12-18 14:19] VITALS: BP 144/77; O2SAT 100
== END 2023-12-18 14:11 | disposition home or self-care (01) ==
LOC: ED 10:43
DX: R00.1 Bradycardia, unspecified (principal); T46.2X6A Underdosing of other antidysrhythmic drugs, initial encounter; Z91.128 Patient's intentional underdosing of medication regimen for other reason; I10 Essential (primary) hypertension; N28.9 Disorder of kidney and ureter, unspecified
CPT/HCPCS: 36415; 80053; 83690; 83735; 84484; 85025; 93005; 96374; 96376; 99284